=== PATIENT | female | born 2000 | race Two or more races ===

== ENCOUNTER 2019-02-03 05:23 | Emergency (ER) | payer SELFPAY ==
[~2019-02-03] VITALS: Ht 149.9 cm; Wt 61.2 kg
[2019-02-03 06:36] LABS: Urine WBC None Seen /hpf (0 - 5)
[2019-02-03 07:05] LABS: Urine Bacteria NONE SEEN /hpf (None Seen); Urine Blood Negative /uL (Negative)
[2019-02-03 07:14] LABS: Amphetamine Screen, Urine NEGATIVE (NEGATIVE); Barbiturate Scree,Urine NEGATIVE (NEGATIVE); Benzodiazephine Screen, Urine NEGATIVE (NEGATIVE); Cannabinoid Screen, Urine NEGATIVE (NEGATIVE); Cocaine Screen, Urine NEGATIVE (NEGATIVE); Opiate Scree,Urine NEGATIVE (NEGATIVE); Phencyclidine Screen, Urine NEGATIVE (NEGATIVE)
[2019-02-03] MEDS ORDERED: IOHEXOL 300 MG/ML 100ML BOTTLE IJ ONE (07:59)
[2019-02-03 09:38] VITALS: BP 117/56
[2019-02-03] MEDS ORDERED: THIAMINE HCL 100 MG TAB PO ONE (09:45)
== END 2019-02-03 09:52 ==
LOC: ER 05:23
DX: S40.022A Contusion of left upper arm, initial encounter (principal); S40.021A Contusion of right upper arm, initial encounter; F10.920 Alcohol use, unspecified with intoxication, uncomplicated; Y90.0 Blood alcohol level of less than 20 mg/100 ml; V43.52XA Car driver injured in collision with other type car in traffic accident, initial encounter; Y93.89 Activity, other specified; Y99.8 Other external cause status; Y92.410 Unspecified street and highway as the place of occurrence of the external cause
CPT/HCPCS: 36415; 70450; 71260; 80307; 80320; 81001; 99284; Q9967

== ENCOUNTER 2021-03-24 21:05 | Emergency (ER) | payer SELFPAY ==
[~2021-03-24] VITALS: Ht 149.9 cm; Wt 61.2 kg
[2021-03-24 21:05] VITALS: BP 145/76
== END 2021-03-24 23:01 | disposition left against medical advice (07) ==
LOC: ER 21:06
DX: Z53.21 Procedure and treatment not carried out due to patient leaving prior to being seen by health care provider